=== PATIENT | female | born 1985 | race American Indian/Alaskan Native ===

== ENCOUNTER 2018-07-18 11:31 | Emergency (ER) | payer OTHER ==
[2018-07-18 11:42] VITALS: BP 134/94
--- NOTE | 2018-07-18 12:03 | Emergency Department Report ---
Chief Complaint: Extremity Injury, Upper Stated Complaint: RT HAND INJURY Time Seen by Provider: 07/18/18 12:00 - HPI History of Present Illness: fb glass in r thumb with phlebitis up right arm cocaine use lmp 07/14 [facility] chronic pain sees chiropractor psh ectopic rx meloxicam muscle relaxer mse completed - Exam Vital Signs: Vital Signs 07/18/18 11:42 Temperature 98.5 F Pulse Rate 101 H Respiratory 18 Rate Blood Pressure 134/94 [Right] O2 Sat by Pulse 100 Oximetry MSE screening note: Focused history and physical exam performed. Due to findings the following was ordered: ED Disposition for MSE Condition: Stable
--- NOTE | 2018-07-18 12:39 | XRay Report ---
RIGHT FINGER RADIOGRAPHS INDICATION: Foreign body in thumb. COMPARISON: None similar at this institution. FINDINGS: AP view of the right hand with oblique and lateral projections to evaluate the thumb demonstrate normal bones, joints and soft tissues. CONCLUSION: No acute right thumb radiographic abnormality or definite radioopaque foreign body noted, as described. Please correlate. Thank you for the opportunity to participate in this patient's care.
[2018-07-18] MEDS ORDERED: CLEOCIN PO ONE (13:00)
[2018-07-18] MEDS ORDERED: IBUPROFEN PO ONE (13:00)
--- NOTE | 2018-07-18 13:05 | Emergency Department Report ---
ED Extremity Problem HPI - General Chief complaint: Extremity Injury, Upper Stated complaint: RT HAND INJURY Time Seen by Provider: 07/18/18 12:00 Source: patient Mode of arrival: Ambulatory Limitations: No Limitations - History of Present Illness Initial comments: Patient is a 33-year-old Female who cut her right thumb pad on a piece of glass yesterday. Patient states that there is some localized pain however now she has a red streak going up the right forearm all the way to the axilla. Patient states there is aching throbbing pain is 8 out of 10 in severity. She denies any fever nausea vomiting or diarrhea at this time. Severity scale (0 -10): 10 - Related Data Previous Rx's Medication Instructions Recorded Last Taken Type Clindamycin [Clindamycin CAP] 300 mg PO Q8H #30 cap 07/18/18 Unknown Rx HYDROcodone/ACETAMINOPHEN 1 each PO Q6HR PRN #15 tablet 07/18/18 Unknown Rx [Hydrocodone-Acetamin 5-325 mg] Ibuprofen [Ibu] 800 mg PO Q8H PRN #20 tablet 07/18/18 Unknown Rx Allergies Allergy/AdvReac Type Severity Reaction Status Date / Time No Known Allergies Allergy Unverified 07/18/18 12:00 ED Review of Systems ROS: Stated complaint: RT HAND INJURY Other details as noted in HPI Comment: All other systems reviewed and negative ED Past Medical Hx - Past Medical History Previous Medical History?: No - Surgical History Past Surgical History?: Yes Additional Surgical History: ectopic - Social History Smoking Status: Current Every Day Smoker Substance Use Type: Cocaine - Medications Home Medications: Home Medications Medication Instructions Recorded Confirmed Last Taken Type Clindamycin [Clindamycin CAP] 300 mg PO Q8H #30 cap 07/18/18 Unknown Rx HYDROcodone/ACETAMINOPHEN 1 each PO Q6HR PRN #15 tablet 07/18/18 Unknown Rx [Hydrocodone-Acetamin 5-325 mg] Ibuprofen [Ibu] 800 mg PO Q8H PRN #20 tablet 07/18/18 Unknown Rx ED Physical Exam - General Limitations: No Limitations General appearance: alert, in no apparent distress - Head Head exam: Present: atraumatic, normocephalic - Eye Eye exam: Present: normal appearance - ENT ENT exam: Present: mucous membranes moist - Neck Neck exam: Present: normal inspection - Respiratory Respiratory exam: Present: normal lung sounds bilaterally. Absent: respiratory distress, wheezes, rales - Cardiovascular Cardiovascular Exam: Present: regular rate, normal rhythm. Absent: systolic murmur, diastolic murmur, rubs, gallop - GI/Abdominal GI/Abdominal exam: Present: soft, normal bowel sounds. Absent: distended, tenderness, guarding, rebound - Extremities Exam Extremities exam: Present: normal inspection - Expanded Upper Extremity Exam Right Hand Wrist exam: Present: tenderness, swelling (patient with a small puncture to the pad of the right thumb. There is some localized swelling, no purulent drainage. Patient has a red streak that extends from this area of the forearm through the antecubital fossa and up the medial aspect of the upper arm) - Back Exam Back exam: Present: normal inspection - Neurological Exam Neurological exam: Present: alert, oriented X3 - Psychiatric Psychiatric exam: Present: normal affect, normal mood - Skin Skin exam: Present: warm, dry, intact, normal color. Absent: rash ED Course Vital Signs 07/18/18 07/18/18 11:42 12:00 Temperature 98.5 F 98.5 F Pulse Rate 101 H 101 H Respiratory 18 16 Rate Blood Pressure 134/94 Blood Pressure 134/94 [Right] O2 Sat by Pulse 100 100 Oximetry ED Medical Decision Making - Radiology Data [facility] [address] [place] [address] XRay Report Signed Patient: RAHEEM CRAWFORD MR#: [id number] : 1985 Acct:[id number] Age/Sex: 33 / F ADM Date: 07/18/18 Loc: ED Attending Dr: Ordering Physician: XIOMARA WHITE Date of Service: 07/18/18 Procedure(s): XR finger(s) 2+V RT Accession Number(s): [id number] cc: XIOMARA WHITE Fluoro Time In Minutes: RIGHT FINGER RADIOGRAPHS INDICATION: Foreign body in thumb. COMPARISON: None similar at this institution. FINDINGS: AP view of the right hand with oblique and lateral projections to evaluate the thumb demonstrate normal bones, joints and soft tissues. CONCLUSION: No acute right thumb radiographic abnormality or definite radioopaque foreign body noted, as described. Please correlate. Thank you for the opportunity to participate in this patient's care. Transcribed By: RS Dictated By: JONATHON CABRERA MD Electronically Authenticated By: JONATHON CABRERA MD Signed Date/Time: 07/18/18 1239 DD/ 123 TD/TT: 07/18/18 123 - Medical Decision Making Patient with localized cellulitis secondary to a puncture on the the right thumb. Patient with some lymphatic extension of this infection. Patient started on clindamycin and patient given meds for symptomatically relief. Critical care attestation.: If time is entered above; I have spent that time in minutes in the direct care of this critically ill patient, excluding procedure time. ED Disposition Clinical Impression: Puncture wound, Phlebitis Cellulitis of thumb Qualifiers: Laterality: right Qualified Code(s): L03.011 - Cellulitis of right finger Disposition: - TO HOME OR SELFCARE Is pt being admited?: No Does the pt Need Aspirin: No Condition: Stable Instructions: Superficial Thrombophlebitis (ED), Cellulitis (ED) Referrals: CHARLES GIRON MD [Primary Care Provider] - 3-5 Days Time of Disposition: 13:05
== END 2018-07-18 14:16 | disposition home or self-care (01) ==
LOC: ED 11:31
DX: S61.031A Puncture wound without foreign body of right thumb without damage to nail, initial encounter (principal); I80.9 Phlebitis and thrombophlebitis of unspecified site; L03.011 Cellulitis of right finger; F17.200 Nicotine dependence, unspecified, uncomplicated; W25.XXXA Contact with sharp glass, initial encounter; Y93.89 Activity, other specified; Y92.89 Other specified places as the place of occurrence of the external cause; Y99.8 Other external cause status

== ENCOUNTER 2018-07-26 11:57 | Emergency (ER) | payer OTHER ==
[2018-07-26 12:03] VITALS: BP 116/85
--- NOTE | 2018-07-26 12:14 | Emergency Department Report ---
Blank Doc - Documentation Documentation: 33 y o female return to ED with worsening thumb pain and swelling from puncture wound swelling noted to thumb xray
--- NOTE | 2018-07-26 12:59 | XRay Report ---
EXAM: RIGHT THUMB X-RAY SERIES HISTORY: swelling pain, fb laceration rt thumb TECHNIQUE: 3 views COMPARISON: None available. FINDINGS: There is no acute bony fracture, or joint subluxation or dislocation seen. No evidence for inflammato ry or degenerative arthritis is seen. No focal bone erosion or sclerosis is seen. No soft tissue emp hysema, radiodense soft tissue abnormality or foreign body is seen. IMPRESSION: 1. No acute bony fracture, or joint subluxation or dislocation seen. 2. No soft tissue emphysema, radiodense soft tissue abnormality or foreign body seen. This document is electronically signed by Wendy Suarez MD., July 26 2018 12:57:05 PM ET
--- NOTE | 2018-07-26 13:10 | Emergency Department Report ---
Chief Complaint: Wound/Laceration Stated Complaint: RT THUMB SWELLING Time Seen by Provider: 07/26/18 12:08 - HPI History of Present Illness: 33-year-old female returns to the ED complaining of swelling to the right thumb. Patient was seen here and evaluated on Saturday for the same symptoms. Patient states her thumb is getting stool and a worsening in pain. She denies fevers/chills/nausea vomiting/any repeat injury or trauma to the finger. - ROS Review of Systems: As noted in HPI - Exam Vital Signs: Vital Signs 07/26/18 12:02 Temperature 98.3 F Pulse Rate 104 H Respiratory 20 Rate Blood Pressure 116/85 O2 Sat by Pulse 98 Oximetry Physical Exam: Finger: Thumb is swollen, tender to palpation, erythematous, blanched as wall. Nailbed is intact. MSE screening note: Focused history and physical exam performed. Due to findings the following was ordered: ED Medical Decision Making - Radiology Data Radiology results: report reviewed, image reviewed No acute, fracture, foreign body seen in the x-ray - Medical Decision Making There is a 33 year female presents with finger infection status post a puncture wound. patient was evaluated here today and was referred to orthopedic surgeon/hand surgeon. Discussed the palpation that is imperative for her to call and make an appointment as soon as possible. Patient states she understands. Patient is currently taken Bactrim and Clindamycin. Discussed the patient to continue taking those antibiotics. Vital signs are normal patient is in no acute distress. ED Disposition for MSE Clinical Impression: Puncture wound, Cellulitis of thumb Disposition: - TO HOME OR SELFCARE Is pt being admited?: No Does the pt Need Aspirin: No Condition: Stable Instructions: Cellulitis (ED) Additional Instructions: Make sure to follow up with the orthopedic doctor as discussed. Take all your medications as you've been prescribed. If you have any worsening symptoms or develop new symptoms please return to ED immediately. Prescriptions: Naproxen [Naprosyn] 500 mg PO BID #30 tablet Referrals: PRIMARY CAREMD [Primary Care Provider] - 3-5 Days NIVIA DAILEY MD [Staff Physician] - 3-5 Days [facility] [Provider Group] - 3-5 Days [facility], [Provider Group] - 3-5 Days [facility] [Provider Group] - 3-5 Days Forms: Work/School Release Form(ED) Time of Disposition: 13:11
== END 2018-07-26 13:20 | disposition home or self-care (01) ==
LOC: ED 11:57
DX: S61.031A Puncture wound without foreign body of right thumb without damage to nail, initial encounter (principal); L03.011 Cellulitis of right finger; X58.XXXA Exposure to other specified factors, initial encounter; Y93.89 Activity, other specified; Y92.89 Other specified places as the place of occurrence of the external cause; Y99.8 Other external cause status